=== PATIENT | female | born 1975 | race Asian ===

== ENCOUNTER → 2017-01-27 | Day surgery (SDC) | payer OTHER ==
--- NOTE | 2017-01-28 12:46 | PATH ---
Surgical Pathology Report Patient Name: BETTY BONDS [facility]. Rec. #: [id number] /Age/Gender: 1975 (Age: 41) / F Account: [id number] Location: [facility] Taken: 01/27/2017 Received: 01/27/2017 Reported: 01/28/2017 Physicians: Regla Dubon MD Specimen(s) Received A: RIGHT BREAST SPECIMEN WITH CALCIFICATIONS B: RIGHT BREAST SPECIMEN WITHOUT CALCIFICATIONS Clinical History Nonpalpable lesion, microcalcification, suspicious Final Diagnosis A. RIGHT BREAST, WITH CALCIFICATION, STEREOTACTIC NEEDLE CORE BIOPSY: BENIGN BREAST TISSUE WITH FIBROCYSTIC CHANGES INCLUDING COLUMNAR CELL CHANGE, STROMAL FIBROSIS, AND DUCTAL DILATATION. MICROCALCIFICATIONS ARE IDENTIFIED WITHIN BENIGN DUCTAL STRUCTURES. B. RIGHT BREAST, WITHOUT CALCIFICATION, STEREOTACTIC NEEDLE CORE BIOPSY: BENIGN BREAST TISSUE WITH FIBROCYSTIC CHANGES INCLUDING USUAL DUCTAL HYPERPLASIA (UDH), STROMAL FIBROSIS, AND DUCTAL DILATATION. Electronically Signed Blake Yepez M.D. Gross Description A. Received in formalin, labeled "right breast with calcifications," are 5 tolentino-yellow, cylindrical portions of fibroadipose tissue ranging from 1.1-2.8 cm. in length and averaging 0.3 cm. in diameter. The specimen is submitted in toto in one cassette. B. Received in formalin labeled "right breast without calcifications," is a 1.8 cm in length x 0.3 cm in diameter tolentino-yellow, cylindrical portion of fibroadipose tissue. The specimen is submitted in toto in one cassette. Time to formalin fixation: 5 minutes Total formalin fixation time: Approximately 9 hours. /01/27/2017 [facility]01/27/2017
== END | disposition home or self-care (01) ==
LOC: FMAMMOTONE 11:22
PROVIDERS: ATTEND Obstetrics & Gynecology
PROC: 0HBT3ZX Excision of Right Breast, Percutaneous Approach, Diagnostic (ICD-10-PCS; principal; 2017-01-27)
DX: N60.31 Fibrosclerosis of right breast (principal); R92.1 Mammographic calcification found on diagnostic imaging of breast; N60.81 Other benign mammary dysplasias of right breast; N64.89 Other specified disorders of breast
CPT/HCPCS: 19081; 87899; 88305-TC; A4648